=== PATIENT | male | born 1965 | race Caucasian/White ===

== ENCOUNTER 2018-11-25 09:19 | Day surgery (SDC) | payer BC, OTHER ==
[2018-11-24 18:37] VITALS: BMI 27.9
--- NOTE | 2018-11-25 13:10 | OP ---
Operative Note - Note: Operative Date: 11/25/18 Pre-Operative Diagnosis: right ureteral stone Operation: Right ESWL Findings: 8 mm right distal ureteral stone Post-Operative Diagnosis: Same as Pre-op Surgeon: Andrade Erickson MD. Anesthesia: MAC Operative Report Dictated: Yes
[2018-11-25] MEDS ORDERED: PROMETHAZINE HCL 25 MG/1 ML VIAL IVPUSH PRN (13:32)
[2018-11-25] MEDS ORDERED: ONDANSETRON 4 MG/2 ML VIAL IVPUSH PRN (13:32)
[2018-11-25] MEDS ORDERED: oxyCODONE HCL 5 MG TABLET PO PRN (13:32)
--- NOTE | 2018-11-25 14:23 | OP ---
DATE OF OPERATION: 11/25/2018 PREOPERATIVE DIAGNOSIS: Right ureteral calculus. POSTOPERATIVE DIAGNOSIS: Right ureteral calculus. PROCEDURE: Right electrohydraulic shock-wave lithotripsy. HISTORY: This is a 52-year-old gentleman who presented to the ER with renal colic and was found to have a right ureteral stone. After discussion treatment options, the patient elected to undergo the above stated procedure. Risks, benefits of treatment, and alternative treatment discussed in detail. All questions were answered. BRIEF OPERATIVE NOTE: The patient was brought into the operating room and placed in supine position. Once general anesthesia was administered, the patient was transferred into position. The stone was localized using 3D fluoroscopy. The stone was clearly visualized. Approximately 2500 shocks were delivered in electromagnetic fashion after adequate sedation was administered. There were no antibiotics given. The patient was tolerated the procedure well and was brought to the recovery room in stable and satisfactory condition. CATRACHO HERNANDEZ M.D. [id number]
[2018-11-25 15:01] VITALS: BP 140/80; PULSE 59; TEMP 97.9
== END 2018-11-25 14:55 | disposition home or self-care (01) ==
LOC: JASU-SURG 09:19
PROVIDERS: ATTEND Urology
PROC: 0TF6XZZ Fragmentation in Right Ureter, External Approach (ICD-10-PCS; principal; 2018-11-25 11:00)
DX: N20.1 Calculus of ureter (principal)
CPT/HCPCS: 94760